=== PATIENT | female | born 1975 ===

== ENCOUNTER 2021-04-20 20:20 | Emergency (ER) | payer OTHER ==
[2021-04-20] MEDS ORDERED: Aspirin 81 MG Tab.Chew PO ONE (20:49)
[2021-04-20 21:56] LABS: BLOOD UREA NITROGEN,BUN 15 mg/dL (7.0-18.0); CARBON DIOXIDE,CO2 22.7 mmol/L (21.0-32.0); CHLORIDE,CL 109 mmol/L (98-107); GLUCOSE RANDOM 85 mg/dL (74-106); POTASSIUM,K 3.1 mmol/L (3.5-5.1); SODIUM,NA 144 mmol/L (136-145)
[2021-04-20] MEDS ORDERED: Potassium Chloride 10% 20 MEQ/15 ML Soln 30 ML UD Cup PO ONE (21:58)
== END 2021-04-20 22:37 | disposition home or self-care (01) ==
LOC: MW.ED 20:20
DX: R07.9 Chest pain, unspecified (principal); G89.29 Other chronic pain; R09.89 Other specified symptoms and signs involving the circulatory and respiratory systems; Z72.0 Tobacco use
CPT/HCPCS: 36415; 71045; 80053; 84484; 85025; 93005; 99285; A9270; 93010; 99284

== ENCOUNTER 2025-01-08 11:25 | Emergency (ER) | payer OTHER ==
[2025-01-08] MEDS ORDERED: Lidocaine/Epineph/Tetracaine 3 ML Syringe TOP ONE (11:41)
[2025-01-08] MEDS: Diphtheria,Pertussis(Acell),Tetanus Vaccine 0.5 ML Syringe IM ONE (12:03)
[2025-01-08] MEDS: Lidocaine 1% with EPINEPHrine 1:100,000 10 ML MDV INFILT ONE (12:04)
[2025-01-08] MEDS: Ketorolac 30 MG/ML SDV IM ONE (12:42)
[2025-01-08] MEDS: Bacitracin Oint 1 GM U/D Packet TOP ONE (12:55)
== END 2025-01-08 13:05 | disposition home or self-care (01) ==
LOC: MW.ED 11:25
DX: S81.852A Open bite, left lower leg, initial encounter (principal); S81.812A Laceration without foreign body, left lower leg, initial encounter; F41.9 Anxiety disorder, unspecified; Z79.899 Other long term (current) drug therapy; W54.0XXA Bitten by dog, initial encounter
CPT/HCPCS: 12002; 73590; 90471; 90715; 96372; 99283; A9270; J1885; J2004